=== PATIENT | female | born 1980 | race Caucasian/White ===

== ENCOUNTER 2017-11-18 10:46 | Emergency (ER) | payer OTHER ==
[2017-11-18 11:07] VITALS: BP 149/95; PULSE 67; TEMP 98; BMI 28.5
[2017-11-18] MEDS ORDERED: ERYTHROMYCIN 0.5% OPHTHALMIC OINTMENT 3.5 GM TUBE OS ONE (11:39)
[2017-11-18] MEDS ORDERED: ERYTHROMYCIN 0.5% OPHTHALMIC OINTMENT 3.5 GM TUBE ONE (11:43)
[2017-11-18] MEDS ORDERED: IBUPROFEN 600 MG TABLET (FP) PO ONE ×2 (11:43→11:46)
--- NOTE | 2017-11-18 11:43 | PDOC ---
*Physical Exam - Vital Signs Last Vital Signs Temp Pulse Resp BP Pulse Ox 98 F 67 18 149/95 99 11/18/17 10:53 11/18/17 10:53 11/18/17 10:53 11/18/17 10:53 11/18/17 10:53 - Physical Exam General Appearance: Yes: Appropriately Dressed, Apparent Distress HEENT: positive: EMELY, Normal ENT Inspection, TMs Normal, Pharynx Normal, Other (extremely photophobic right eye with tearing and injection, no purulent drainage and pupil REACTIVE ). negative: Rhinorrhea Neck: positive: Supple. negative: Tender, Lymphadenopathy (R), Lymphadenopathy (L) Respiratory/Chest: positive: Lungs Clear, Normal Breath Sounds. 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 Hospital Monitor case with Dr. Franks, ophthalmology who recommended all Floxin drops every 2 hours, erythromycin at night and will see patient tomorrow in office at noon for further evaluation. Patient given #7 Percocet tablets due to exquisite pain otherwise will use ibuprofen for pain relief 11/18/17 12:30 *DC/Admit/Observation/Transfer Diagnosis at time of Disposition: Corneal ulcer of right eye - Discharge Dispostion Disposition: HOME Condition at time of disposition: Stable Decision to Admit order: No - Prescriptions Prescriptions: Moxifloxacin HCl [Vigamox 0.5% Eye Drops -] 1 drop OD TID #1 drops - Referrals Referrals: Tej Valdivia [Primary Care Provider] - Larisa Longoria MD [Staff Physician] - - Patient Instructions Printed Discharge Instructions: DI for Corneal Ulcer Additional Instructions: Rest, avoid rubbing eyes Wash hands, use eye drops as directed, wash hands after use Your eye has been dilated and may stay as same for 24 hours, avoid bright light Erythromycin ointment at night to affected eye OFloxin eyedrops one drop to right eye every 2 hours while awake May use ibuprofen for mild to moderate pain Percocet 1 tablet every 6 hours as needed for severe pain, remembering well- made dizzy and sleepy Call and be seen at Dr. Longoria office tomorrow at noon for further evaluation and possible treatment - Post Discharge Activity Forms/Work/School Notes: Back to Work History of Present Illnes - History of Present Illness Reason for Visit: patient here with complaints of right eye pain since last night. States too History of Present Illness: Patient here with complaint of right eye pain and photophobia. States wear soft contact lenses, removed them last night as per her usual without incident. States woke up this morning with exquisite pain to her right eye tearing without drainage. Was concerned about conjunctivitis but states did not have any redness or purulent drainage. Patient states has mildly blurred but relatively within normal limits. Denies fever, ear or throat pain, no recent blow to face or trauma that she knows of. - Past Surgical History Past Surgical History: None - Past Family History Family History: None *Review of Systems - Review of Systems Able to Perform ROS?: Yes Constitutional: Yes: Symptoms Reported, See HPI. No: Chills, Fever HEENTM: Yes: Symptoms Reported, See HPI, Eye Pain, Blurred Vision, Tearing. No : Recent change in vision, Double Vision, Cataracts, Ear Pain Respiratory: Yes: See HPI. No: Symptoms reported ABD/GI: No: Symptoms Reported Musculoskeletal: No: Symptoms Reported Integumentary: No: Symptoms Reported Neurological: Yes: Symptoms reported, See HPI, Headache. No: Numbness All Other Systems: Reviewed and Negative
== END 2017-11-18 12:43 | disposition home or self-care (01) ==
LOC: JERFT 10:46
DX: H16.001 Unspecified corneal ulcer, right eye (principal)
CPT/HCPCS: 99281-25